=== PATIENT | female | born 1955 | race Hispanic/Latino ===

== ENCOUNTER → 2023-06-22 08:25 | Outpatient (REF) | payer OTHER, SELFPAY ==
[2023-06-22 09:09] LABS: ALT (SGPT) 37 U/L (0-35); AST (SGOT) 45 U/L (14-36); Albumin 4.4 g/dl (3.5-5.0); Alkaline Phosphatase 108 U/L (38-126); Blood Urea Nitrogen 17 mg/dl (7-17); Calcium 9.4 mg/dl (8.4-10.2); Carbon Dioxide 27 mmol/L (22-30); Chloride 104 mmol/L (98-107); Glucose 107 mg/dl (70-99); HDL Cholesterol 53 mg/dl; LDL Cholesterol, Calculated 50 mg/dl; Potassium 4.2 mmol/L (3.5-5.1); Sodium 138 mmol/L (135-145); Total Bilirubin 1.2 mg/dl (0.2-1.3); Total Cholesterol 123 mg/dl (50-199); Total Protein 7.5 g/dl (6.3-8.2); Triglyceride 101 mg/dl (10-149); Very Low Density Lipoprotein 20 mg/dl (0-30); eGFR > 60.00
[2023-06-22 09:25] LABS: Vitamin D, 25-OH*** 65.3 ng/mL (30-80)
[2023-06-22 10:07] LABS: Microalbumin, Random Urine 1.1 mg/dl (0.6-1.7); Microalbumin/creatinine Ratio 12.3 mg/g
[2023-06-22 10:57] LABS: Glycohemoglobin (HgbA1c) 6.2 % (4.0-5.6)
== END ==
LOC: CLINIC 08:25
PROVIDERS: ATTENDING PHYSICIAN Nurse Practitioner Adult Health
DX: E55.9 Vitamin D deficiency, unspecified (principal); E78.1 Pure hyperglyceridemia; E11.9 Type 2 diabetes mellitus without complications
CPT/HCPCS: 36415; 80053; 80061; 82043; 82306; 82570; 83036

== ENCOUNTER → 2023-09-14 08:47 | Outpatient (REF) | payer OTHER, SELFPAY ==
[2023-09-14 10:12] LABS: ALT (SGPT) 43 U/L (0-35); AST (SGOT) 49 U/L (14-36); Albumin 4.6 g/dl (3.5-5.0); Alkaline Phosphatase 112 U/L (38-126); Blood Urea Nitrogen 16 mg/dl (7-17); Calcium 9.6 mg/dl (8.4-10.2); Carbon Dioxide 23 mmol/L (22-30); Chloride 107 mmol/L (98-107); Glucose 111 mg/dl (70-99); Potassium 4.1 mmol/L (3.5-5.1); Sodium 138 mmol/L (135-145); Total Bilirubin 1.3 mg/dl (0.2-1.3); Total Protein 7.6 g/dl (6.3-8.2); eGFR > 60.00
[2023-09-14 12:54] LABS: Glycohemoglobin (HgbA1c) 5.9 % (4.0-5.6)
[2023-09-16 19:39] LABS: Hepatitis B Surface Antigen Negative (Negative)
[2023-09-16 19:57] LABS: Hepatitis B Core Ab, Total Negative (Negative); Hepatitis B Surface Antibody Negative; Hepatitis C Antibody Negative (Negative)
== END ==
LOC: REG 08:47
PROVIDERS: ATTENDING PHYSICIAN Nurse Practitioner Adult Health
DX: E11.9 Type 2 diabetes mellitus without complications (principal); R74.8 Abnormal levels of other serum enzymes
CPT/HCPCS: 36415; 80053; 83036; 86704; 86706; 86803; 87340

== ENCOUNTER → 2024-02-22 07:52 | Outpatient (REF) | payer OTHER, SELFPAY ==
[2024-02-22 09:10] LABS: ALT (SGPT) 39 U/L (0-35); AST (SGOT) 48 U/L (14-36); Albumin 4.4 g/dl (3.5-5.0); Alkaline Phosphatase 97 U/L (38-126); Blood Urea Nitrogen 19 mg/dl (7-17); Calcium 9.8 mg/dl (8.4-10.2); Carbon Dioxide 26 mmol/L (22-30); Chloride 104 mmol/L (98-107); Glucose 116 mg/dl (70-99); Potassium 4.4 mmol/L (3.5-5.1); Sodium 141 mmol/L (135-145); Total Protein 7.3 g/dl (6.3-8.2); eGFR > 60.00
== END ==
LOC: REG 07:52
PROVIDERS: ATTENDING PHYSICIAN Nurse Practitioner Adult Health
DX: E11.9 Type 2 diabetes mellitus without complications (principal)
CPT/HCPCS: 36415; 80053; 83036